=== PATIENT | male | born 1955 | race Caucasian/White ===

== ENCOUNTER → 2022-02-10 | Day surgery (SDC) | payer MEDICARE, MEDICAID ==
[2022-02-09 10:41] VITALS: BMI 35.0
[~2022-02-10] MED LIST: Lidocaine 1% PF 5 ML VIAL ONE; Propofol 1,000 MG/100 ML VIAL IV ONE
== END | disposition home or self-care (01) ==
LOC: SDC 06:11
PROVIDERS: ATTEND Internal Medicine
PROC: 0DBK8ZX Excision of Ascending Colon, Via Natural or Artificial Opening Endoscopic, Diagnostic (ICD-10-PCS; principal; 2022-02-10)
DX: Z12.11 Encounter for screening for malignant neoplasm of colon (principal); D12.2 Benign neoplasm of ascending colon; K57.30 Diverticulosis of large intestine without perforation or abscess without bleeding; K64.4 Residual hemorrhoidal skin tags; Z79.82 Long term (current) use of aspirin; Z79.84 Long term (current) use of oral hypoglycemic drugs; Z79.899 Other long term (current) drug therapy; Z88.8 Allergy status to other drugs, medicaments and biological substances
CPT/HCPCS: 88305; J2704